=== PATIENT | male | born 1980 | race Caucasian/White ===

== ENCOUNTER 2021-03-22 09:24 | Outpatient (CLI) | payer OTHER | END 2021-03-22 09:25 | disposition home or self-care (01) | LOC: CSHCT 09:24 | PROVIDERS: ATTEND Internal Medicine Medical Oncology | DX: N28.89 Other specified disorders of kidney and ureter (principal) | CPT/HCPCS: 71260; 74178 ==

== ENCOUNTER 2024-03-27 10:27 | Outpatient (CLI) | payer BC | END 2024-03-27 10:28 | disposition home or self-care (01) | LOC: CSHMRI 10:27 | PROVIDERS: ATTEND Orthopaedic Surgery | DX: M46.1 Sacroiliitis, not elsewhere classified (principal); M25.551 Pain in right hip; Q76.49 Other congenital malformations of spine, not associated with scoliosis; M16.11 Unilateral primary osteoarthritis, right hip; Z96.7 Presence of other bone and tendon implants; M25.851 Other specified joint disorders, right hip; S76.011A Strain of muscle, fascia and tendon of right hip, initial encounter | CPT/HCPCS: 72195 ==